=== PATIENT | male | born 1955 | race Caucasian/White ===

== ENCOUNTER 2020-05-01 09:46 | Inpatient (IN) | payer BC ==
[~2020-05-01] VITALS: Ht 188 cm; Wt 141.5 kg
[2020-05-01] MEDS ORDERED: SODIUM CHLORIDE 0.9% 1000ML 1,000 ML IV STA (09:58)
[2020-05-01] MEDS ORDERED: ONDANSETRON HCL INJ 2MG/ML 2ML 2 MG/ML VIAL IV STA (09:58)
[2020-05-01] MEDS ORDERED: MORPHINE SULFATE INJ 4 MG/ML INJ 1ML IV PRN ×2 (10:00→12:30)
--- NOTE | 2020-05-01 10:04 | Emergency Department Note ---
History of Present Illnes History of Present Illness Chief Complaint: Abdominal Complaints History of Present Illness This is a 65 year old male arrived to the ED with complaints of abdominal pain. Chief Complaint Comment pt came from home via POV, pt c/o nausea, vomiting and diarrhea x 3 days, pt states that he felt better after a day but has not been able to eat or drink anything because of the fear of vomiting, pt took Phenergan at 0800 this morning but states that he did not feel any relief, no tenderness noted to the abdomen, pt appears NAD during triage and initial contact Historian: Patient Onset (how long ago): day(s) Radiation: Reports non-radiation Severity: mild Duration (how long): day(s) Timing of current episode: constant Progression: worsening Chronicity: new Relieving factors: none Exacerbating factors: none Past Medical/Family History Physician Review I have reviewed the patient's past medical and family history. Any updates have been documented here. Past Medical History Recent Fever: Yes (patient states that he had a fever at home) Clinical Suspicion of Infectio: No New/Unexplained Change in Ment: No Past Medical History: Hypertension, Hyperlipedemia Past Surgical History: None Social History Smoking Cessation: Never Smoker Counseling Performed: No Alcohol Use: None Any Illegal Drug Use: No Other Any Pre-Existing Lines (PICC,: No Review of Systems Review of Systems Constitutional: Reports no symptoms EENTM: Reports no symptoms Cardiovascular: Reports no symptoms Respiratory: Reports no symptoms Gastrointestinal: Reports as per HPI, Reports abdominal pain, Reports nausea, Reports vomiting Genitourinary: Reports no symptoms Musculoskeletal: Reports no symptoms Integumentary: Reports no symptoms Neurological: Reports no symptoms Psychological: Reports no symptoms Endocrine: Reports no symptoms Hematological/Lymphatic: Reports no symptoms Physical Exam Related Data Allergies: Coded Allergies: No Known Allergies (Unverified , 05/01/20) Triage Vital Signs Vital Signs Date Time Temp Pulse Resp B/P (MAP) Pulse Ox O2 Delivery O2 Flow Rate FiO2 05/01/20 09:58 98.2 113 18 150/78 100 Room Air Vital signs reviewed: Yes Physical Exam CONSTITUTIONAL Constitutional: Present well-developed, Present well-nourished, Present obese HENT HENT: Present normocephalic, Present atraumatic, Present oropharynx clear/moist, Present nose normal HENT L/R: Present left ext ear normal, Present right ext ear normal EYES Eyes: Reports PERRL, Reports conjunctivae normal NECK Neck: Present ROM normal PULMONARY Pulmonary: Present effort normal, Present breath sounds normal CARDIOVASCULAR Cardiovascular: Present regular rhythm, Present heart sounds normal, Present capillary refill normal, Present normal rate GASTROINTESTINAL Abdominal: Present soft, Present bowel sounds normal, Present distension, Present tender GENITOURINARY Genitourinary: Present exam deferred SKIN Skin: Present warm, Present dry MUSCULOSKELETAL Musculoskeletal: Present ROM normal NEUROLOGICAL Neurological: Present alert, Present oriented x 3, Present no gross motor or sensory deficits PSYCHOLOGICAL Psychological: Present mood/affect normal, Present judgement normal Results Laboratory Lab results reviewed: Yes Laboratory comments Laboratory Tests Test 05/01/20 12:25 05/01/20 09:55 White Blood Count 16.32 x10e3/uL (4.8-10.8) Red Blood Count 4.86 x10e6/uL (4.3-5.7) Hemoglobin 14.7 g/dL (14.0-18.0) Hematocrit 43.0 % (38.2-49.6) Mean Corpuscular Volume 88.5 fL (81-99) Mean Corpuscular Hemoglobin 30.2 pg (28-32) Mean Corpuscular Hemoglobin Concent 34.2 g/dL (31-35) Red Cell Distribution Width 12.3 % (11.7-14.4) Platelet Count 175 x10e3/uL (140-360) Neutrophils (%) (Auto) 87.6 % (38.7-80.0) Lymphocytes (%) (Auto) 3.4 % (18.0-39.1) Monocytes (%) (Auto) 7.7 % (4.4-11.3) Eosinophils (%) (Auto) 0.2 % (0.0-6.0) Basophils (%) (Auto) 0.4 % (0.0-1.0) Neutrophils # (Auto) 14.3 (2.1-6.9) Lymphocytes # (Auto) 0.6 (1.0-3.2) Monocytes # (Auto) 1.3 (0.2-0.8) Eosinophils # (Auto) 0.0 (0.0-0.4) Basophils # (Auto) 0.1 (0.0-0.1) Absolute Immature Granulocyte (auto 0.12 x10e3/uL (0-0.1) Sodium Level 132 mmol/L (136-145) Potassium Level 4.1 mmol/L (3.5-5.1) Chloride Level 91 mmol/L (98-107) Carbon Dioxide Level 23 mmol/L (22-29) Anion Gap 22.1 mmol/L (8-16) Blood Urea Nitrogen 14 mg/dL (7-26) Creatinine 1.05 mg/dL (0.72-1.25) Estimat Glomerular Filtration Rate > 60 ML/MIN (60-) BUN/Creatinine Ratio 13 (6-25) Glucose Level 324 mg/dL (74-118) Calcium Level 9.7 mg/dL (8.4-10.2) Total Bilirubin 1.2 mg/dL (0.2-1.2) Aspartate Amino Transf (AST/SGOT) 24 IU/L (5-34) Alanine Aminotransferase (ALT/SGPT) 14 IU/L (0-55) Alkaline Phosphatase 134 IU/L (40-150) Creatine Kinase 46 IU/L (30-200) Creatine Kinase MB 0.40 ng/mL (0-5.0) Troponin I 0.002 ng/mL (0-0.300) Total Protein 7.2 g/dL (6.5-8.1) Albumin 3.6 g/dL (3.5-5.0) Globulin 3.6 g/dL (2.3-3.5) Albumin/Globulin Ratio 1.0 (0.8-2.0) Lipase 32 U/L (8-78) Imaging Imaging results reviewed: Yes Impressions IMPRESSION: Acute cholecystitis. Surgical consultation is suggested. Additional findings include prostatomegaly and atherosclerotic vascular disease. Signed by: Dr. Orville Zaragoza M.D. on 05/01/2020 12:17 PM Procedures 12 Lead ECG Interpretation ECG Interpretation : ECG: ECG 1 Histology Specialist: Interpreted by ED physician Prior ECG tracings: reviewed Rhythm: sinus tachycardia QRS axis: left ST segments normal: Yes Clinical Impression: normal ECG Assessment & Plan Medical Decision Making MDM 65-year-old male arrives to the ED with diffuse abdominal pain. CT findings concerning for acute cholecystitis. Patient with WBC count of about 16,000. And also Rocephin given and patient admitted. Spoke to Dr. Alok Reagan for general surgery evaluation and management. Assessment & Plan Final Impression: (1) Acute cholecystitis Depart Disposition: HOME, SELF-CARE Last Vital Signs Date Time Temp Pulse Resp B/P (MAP) Pulse Ox O2 Delivery O2 Flow Rate FiO2 05/01/20 09:58 98.2 113 18 150/78 100 Room Air JEREMIAH DIEZ DO May 01, 2020 10:04
[2020-05-01 10:15] LABS: BASOPHILS # (AUTO) 0.1 (0.0-0.1); BASOPHILS % 0.4 % (0.0-1.0); EOSINOPHILS % 0.2 % (0.0-6.0); HEMOGLOBIN 14.7 g/dL (14.0-18.0); LYMPHOCYTES # (AUTO) 0.6 (1.0-3.2); LYMPHOCYTES % 3.4 % (18.0-39.1); MEAN CORPUSCULAR HEMOGLOBIN 30.2 pg (28-32); MEAN CORPUSCULAR HGB CONC 34.2 g/dL (31-35); MEAN CORPUSCULAR VOLUME 88.5 fL (81-99); MONOCYTES # (AUTO) 1.3 (0.2-0.8); MONOCYTES % 7.7 % (4.4-11.3); NEUTROPHILS # (AUTO) 14.3 (2.1-6.9); NEUTROPHILS % 87.6 % (38.7-80.0); PLATELET COUNT 175 x10e3/uL (140-360); RED BLOOD COUNT 4.86 x10e6/uL (4.3-5.7); RED CELL DISTRIBUTION WIDTH 12.3 % (11.7-14.4)
[2020-05-01 10:42] LABS: ALANINE AMINOTRANSFERASE 14 IU/L (0-55); ALBUMIN 3.6 g/dL (3.5-5.0); ALKALINE PHOSPHATASE 134 IU/L (40-150); ANION GAP 22.1 mmol/L (8-16); BLOOD UREA NITROGEN 14 mg/dL (7-26); BUN/CREATININE RATIO 13 (6-25); CALCIUM 9.7 mg/dL (8.4-10.2); CARBON DIOXIDE 23 mmol/L (22-29); CHLORIDE 91 mmol/L (98-107); CREATINE KINASE 46 IU/L (30-200); CREATININE, SERUM 1.05 mg/dL (0.72-1.25); EST GLOMERULAR FILTRATION RATE > 60 ML/MIN (60-); GLUCOSE 324 mg/dL (74-118); POTASSIUM 4.1 mmol/L (3.5-5.1); SODIUM 132 mmol/L (136-145)
--- NOTE | 2020-05-01 11:21 | Diagnostic Imaging Report ---
Examination: Single AP view of the chest. COMPARISON: None. INDICATION: Abdominal pain DISCUSSION: The lungs are well-inflated. Linear airspace opacities in the lung bases compatible with subsegmental atelectasis. No airspace consolidation, pleural effusion, or pneumothorax. Mild enlargement of the cardiac silhouette without overt pulmonary edema. Tortuous thoracic aorta. Convexity along the right pericardiophrenic sulcus likely reflects prominent epicardial fat. No acute osseous abnormality. IMPRESSION: Subsegmental atelectasis in the lung bases. Mild enlargement of the cardiac silhouette without vascular decompensation. Signed by: Dr. Orville Zaragoza M.D. on 05/01/2020 11:18 AM
--- OUTSIDE RECORDS SUMMARY | 2020-05-01 11:51 | XMS REPORT | Continuity of Care Document ---
Author Author [facility] Organization [facility] Address [address] [place] [id number] Phone Unavailable Care Team Providers Care Eyelet Row Marker Name Role Phone Yassine DIEZ Attphyyassine Unavailable Problems This patient has no known problems. Allergies, Adverse Reactions, Alerts This patient has no known allergies or adverse reactions. Medications This patient has no known medications. Procedures This patient has no known procedures. Results Test Description Test Time Test Comments Results Result Comments Source CHEST SINGLE (PORTABLE) 2020-05-01 11:15:00 [place] [address] Patient Name: FRANCK LEÓN MR #: [id number] : 1955 Age/Sex: 65/M Req #: [id number] Adm Physician: Ordered by: JEREMIAH DIEZ DO Report #: [id number] Location: ER Room/Bed: Procedure: [id number] DX/CHEST SINGLE (PORTABLE) Exam Date: 05/01/20 Exam Time: 1040 REPORT STATUS: Signed Examination: Single AP view of the chest. COMPARISON: None. INDICATION: Abdominal pain DISCUSSION: The lungs are well-inflated. Linear airspace opacities in the lung bases compatible with subsegmental atelectasis. No airspace co nsolidation, pleural effusion, or pneumothorax. Mild enlargement of the cardiac silhouette without overt pulmonary edema. Tortuous thoracic aorta. Convexity along the right pericardiophrenic sulcus likely reflects prominent epicardial fat. No acute osseous abnormality. IMPRESSION: Subsegmental atelectasis in the lung bases. Mild enlargement of the cardiac silhouette without vascular decompensation. Signed by: Dr. Willian Orta M.D. on 05/01/2020 11:18 AM Dictated By: WILLIAN ORTA MD 111 Transcribed By: MILANA on 05/01/201117 COPY TO: JEREMIAH DIEZ DO
[2020-05-01] MEDS ORDERED: IOPAMIDOL 370 MG/ML 200 ML INFUS..BTL INJ ONE (12:17)
[2020-05-01] MEDS ORDERED: SODIUM CHLORIDE 0.9% 50ML 50 ML ONE (12:17)
--- NOTE | 2020-05-01 12:20 | Diagnostic Imaging Report ---
EXAMINATION: CT of the abdomen and pelvis with contrast. TECHNIQUE: Spiral CT images of the abdomen and pelvis were performed from the lung bases to the lesser trochanters after the intravenous administration of 100 cc of Isovue 370. Coronal and sagittal reformatted images were obtained. COMPARISON: Chest radiograph same day CLINICAL HISTORY:Abdominal pain, nausea, vomiting, diarrhea DISCUSSION: ABDOMEN/PELVIS: LOWER THORAX:Bandlike atelectasis in the lower lobes. HEPATOBILIARY: No focal hepatic lesions. No intra-or extrahepatic biliary ductal dilation. The gallbladder wall is thickened and hyperenhancing, with pericholecystic inflammatory fat stranding extending into the david hepatis region. No discrete radiodense calculus or common bile duct dilatation. SPLEEN: No splenomegaly or focal splenic lesion. PANCREAS: No focal mass or ductal dilatation. No peripancreatic inflammation. ADRENALS: No adrenal nodules. KIDNEYS/URETERS: No hydronephrosis, calculi, or solid or cystic mass lesions. PELVIC ORGANS/BLADDER: The prostate is enlarged, measuring 5.7 cm transversely with mass effect on the bladder base. The urinary bladder is otherwise unremarkable. PERITONEUM/RETROPERITONEUM: No ascites or pneumoperitoneum. LYMPH NODES: Prominent reactive lymph nodes in the david hepatis measure up to 1.2 cm short axis. No pelvic sidewall or retroperitoneal lymphadenopathy. VESSELS: Atherosclerotic calcification of the abdominal aorta, major branch vessels, and iliac arterial systems without aneurysmal dilatation. 3 left renal arteries and 2 right renal arteries. Portal vein, splenic vein, and central superior mesenteric vein are patent. GI TRACT: The large bowel shows no distention or wall thickening, though the descending and sigmoid colon are collapsed and poorly evaluated. The appendix is normal. The stomach is collapsed with prominent rugal folds. Small duodenal diverticula. No small bowel dilatation to suggest obstruction. BONES AND SOFT TISSUE: No osseous destructive lesions. Mild multilevel degenerative disc changes of the lower thoracic and lumbar spine. No focal soft tissue abnormalities. IMPRESSION: Acute cholecystitis. Surgical consultation is suggested. Additional findings include prostatomegaly and atherosclerotic vascular disease. Signed by: Dr. Orville Zaragoza M.D. on 05/01/2020 12:17 PM
[2020-05-01] MEDS ORDERED: CEFTRIAXONE SOD 1 GM/NS 50 ML 50 ML IV ONE (12:30)
[2020-05-01] MEDS ORDERED: ONDANSETRON HCL INJ 2MG/ML 2ML 2 MG/ML VIAL IV PRN (12:30)
--- OUTSIDE RECORDS SUMMARY | 2020-05-01 12:38 | XMS REPORT | Continuity of Care Document ---
Author Author [facility] t Organization [facility] Address [address] [place] [id number] Phone Unavailable Care Team Providers Care Slag Mixer Name Role Phone Maribel DIEZ Unavailable Problems This patient has no known problems. Allergies, Adverse Reactions, Alerts This patient has no known allergies or adverse reactions. Medications This patient has no known medications. Procedures This patient has no known procedures. Results Test Description Test Time Test Comments Results Result Comments Source CT ABDOMEN/PELVIS W 2020-05-01 12:08:00 [place] [address] Patient Name: FRANCK LEÓN MR #: [id number] : 1955 Age/Sex: 65/M Req #: [id number] Adm Physician: Ordered by: JEREMIAH DIEZ DO Report #: [id number] Location: ER Room/Bed: Procedure: [id number] CT/CT ABDOMEN/PELVIS W Exam Date: 05/01/20 Exam Time: 1135 REPORT STATUS: Signed EXAMINATION: CT of the abdomen and pelvis with contrast. TECHNIQUE: Spiral CT images of the abdomen and pelvis were performed from the lung bases to the lesser trochanters after the intravenous administration of 100 cc of Isovue 370. Coronal and sagittal reformatted images were obtained. COMPARISON: Chest radiograph same day CLINICAL HISTORY:Abdominal pain, nausea, vomiting, diarrhea DISCUSSION: ABDOMEN/PELVIS: LOWER THORAX:Bandlike atelectasis in the lower lobes. HEPATOBILIARY: No focal hepatic lesions. No intra-or extrahepatic biliary ductal dilation. The gallbladder wall is thickened and hyperenhancing, with pericholecystic inflammatory fat stranding extending into the david hepatis region. No discrete radiodense calculus or common bile duct dilatation. SPLEEN: No splenomegaly or focal splenic lesion. PANCREAS: No focal mass or ductal dilatation. No peripancreatic inflammation. ADRENALS: No adrenal nodules. KIDNEYS/URETERS: No hydronephrosis, calculi, or solid or cystic mass lesions. PELVIC ORGANS/BLADDER: The prostate is enlarged, measuring 5.7 cm transversely with mass effect on the bladder base. The urinary bladder is otherwise unremarkable. PERITONEUM/ RETROPERITONEUM: No ascites or pneumoperitoneum. LYMPH NODES: Prominent reactive lymph nodes in the david hepatis measure up to 1.2 cm short axis. No pelvic sidewall or retroperitoneal lymphadenopathy. VESSELS: Atherosclerotic calcification of the abdominal aorta, major branch vessels, and iliac arterial systems without aneurysmal dilatation. 3 left renal arteries and 2 right renal arteries. Portal vein, splenic vein, and central superior mesenteric vein are patent. GI TRACT: The large bowel shows no distention or wall thickening, though the descending and sigmoid colon are co llapsed and poorly evaluated. The appendix is normal. The stomach is collapsed with prominent rugal folds. Small duodenal diverticula. No small bowel dilatation to suggest obstruction. BONES AND SOFT TISSUE: No osseous destructive lesions. Mild multilevel degenerative disc changes of the lower thoracic and lumbar spine. No focal soft tissue abnormalities. IMPRESSION: Acute cholecystitis. Surgical consultation is suggested. Additional findings include prostatomegaly and atherosclerotic vascular disease. Signed by: Dr. Willian Orta M.D. on 05/01/2020 12:17 PM Dictated By: WILLIAN ORTA MD 1217 Transcribed By: MILANA on 05/01/20 1217 COPY TO: JEREMIAH DIEZ DO CHEST SINGLE (PORTABLE) 2020-05-01 11:15:00 [place] [address] Patient Name: FRANCK LEÓN MR #: [id number] : 1955 Age/Sex: 65/M Req #: [id number] Adm Physician: Ordered by: JEREMIAH DIEZ DO Report #: [id number] Location: ER Room/Bed: Procedure: [id number] DX/CHEST SINGLE (PORTABLE) Exam Date: 05/01/20 Exam [...] 11:18 AM Dictated By: WILLIAN ORTA MD 17 Transcribed By: MILANA on 05/01/201117 COPY TO: JEREMIAH DIEZ DO
[2020-05-01] MEDS ORDERED: GLYCOPYRROLATE INJ 0.2 MG/ML VIAL ONE (13:40)
[2020-05-01] MEDS ORDERED: KETOROLAC TROMETHAMINE 30 MG/ML VIAL ONE (13:40)
[2020-05-01] MEDS ORDERED: ONDANSETRON HCL INJ 2MG/ML 2ML 2 MG/ML VIAL ONE (13:40)
[2020-05-01] MEDS ORDERED: PHENYLEPHRINE HCL 1% 10 MG/ML VIAL ONE (13:40)
[2020-05-01] MEDS ORDERED: DEXAMETHASONE SOD PHOS INJ 4 MG/ML VIAL ONE (13:40)
[2020-05-01] MEDS ORDERED: ROCURONIUM BROMIDE 10 MG/ML 5ML VIAL IV ONE (13:40)
[2020-05-01] MEDS ORDERED: PROPOFOL IV EMULSION 10 MG/ML 20 ML VIAL ONE (13:40)
[2020-05-01] MEDS ORDERED: SEVOFLURANE INHAL SOLN 250 ML PEN BTL ONE (13:40)
[2020-05-01] MEDS ORDERED: LIDOCAINE HCL 2% LOCAL INJ 5 ML SDV VIAL INJ ONE (13:40)
[2020-05-01] MEDS ORDERED: NEOSTIGMINE 1 MG/ML 10ML VIAL ONE ×2 (13:40→17:28)
[2020-05-01] MEDS ORDERED: INSULIN REGULAR, HUMAN 100 UNIT/1 ML 3ML VIAL ONE (14:44)
[2020-05-01] MEDS ORDERED: BUPIVACAINE 0.25% 30ML SDV INJ ONE (14:55)
[2020-05-01] MEDS ORDERED: METRONIDAZOLE 500MG/NS 100ML 100 ML IV ONE (15:19)
[2020-05-01] MEDS ORDERED: ACETAMINOPHEN 1000 MG/100 ML 100 ML IV ONE (15:33)
[2020-05-01 17:00] VITALS: BP 103/64
[2020-05-01] MEDS: INSULIN REGULAR, HUMAN 100 UNIT/1 ML 3ML VIAL SQ SCH (18:00)
[2020-05-01] MEDS ORDERED: DEXTROSE 50% SYRINGE 50 ML IV PRN (18:00)
[2020-05-01] MEDS ORDERED: ACETAMINOPHEN 325 MG TAB PO PRN (18:15)
--- NOTE | 2020-05-01 18:41 | Operative Report ---
DATE OF PROCEDURE: 05/01/2020 SURGEON: Mandeep Reagan MD PREOPERATIVE DIAGNOSES: 1. Hydrops of the gallbladder with empyema of the gallbladder, gangrenous acute cholecystitis. 2. Obesity. 3. Diabetes. POSTOPERATIVE DIAGNOSES: 1. Hydrops of the gallbladder with empyema of the gallbladder, gangrenous acute cholecystitis. 2. Diabetes. 3. Obesity. PROCEDURES PERFORMED: 1. Laparoscopic cholecystectomy. 2. Drainage of hydrops of the gallbladder. ASSISTANTS: 1. Orlando Reagan M.D. 2. ALONDRA Devnie. ESTIMATED BLOOD LOSS: Less than 100 mL. DRAINS: One 10 mm flat [place] drain. COMPLICATIONS: None. INDICATIONS AND FINDINGS: The patient is a 65-year-old male admitted with right upper quadrant pain for about a week. The patient's stated that he had been having the pain, and she asked him to come to the hospital, but he refused. The patient then finally a week later after the onset of the pain, presented to the emergency room at [facility], where he was found to have acute cholecystitis both clinically, laboratory data and by CT scan, revealed severe inflammatory changes in the right upper quadrant with enhancement of the gallbladder consistent with cholecystitis. INTRAOPERATIVE FINDINGS: The patient was found to have on laparoscopy acute gangrenous cholecystitis with gangrenous changes of the gallbladder. The gallbladder was very thick walled with areas of inflammation and mucosal ischemia. Due to the thickening of the gallbladder, I could not tell if there were any stones or not within the lumen of the gallbladder. The cystic duct was small and we could not see well due to the severe inflammatory changes in the common duct; however, I felt that I was able to identify the common duct within that inflammation. We clipped the cystic duct well away from where the common bile duct was. DESCRIPTION OF PROCEDURE: With the patient lying on the operative table in the supine position after administration of general anesthesia, he was prepped and draped for laparoscopic cholecystectomy, we began the procedure by establishing the pneumoperitoneum in the umbilical site after stab wound was made in that location and saline drop test was performed and pneumoperitoneum was insufflated to 15 mm of pressure, and then we placed a 10/11 trocar in that location. We placed a 10 mm subxiphoid port and two lateral working ports in the right midclavicular line and right anterior axillary line. Due to the acuteness of the situation, we had to put a fifth trocar in the left upper quadrant using a 5 mm size. Upon entering the abdomen, laparoscopy revealed a very large gallbladder, which was palpable after the patient was put to sleep as a hard mass. The gallbladder was very difficult to grasp with the grasper at the beginning. We decompressed the gallbladder several times in order to grasp the gallbladder and be able to perform the procedure laparoscopically. We began the dissection by first the gallbladder, which was a phlegmonous mass, from where it was stuck to the omentum leaving an indentation in the omentum that was at least 10 cm long x 5 or longer. After we the gallbladder from the omentum and decompressed it, then we were able to retract the gallbladder and began the dissection high down the gallbladder away from the hepatic ligament, which was unrecognizable. We slowly and gradually mobilized the gallbladder until we came across a couple of structures, one which was to the left, which turned out to be the cystic duct and another structure of which was larger and was located to the right of the surgeon's angle of view, which turned out to be the inflamed cystic artery. After we identified those structures, we carefully continued the dissection until we were able to gain enough length of the cystic duct to clip it away from the hepatoduodenal ligament and away from what I felt that the common bile duct was. The cystic artery was also transected between titanium clips, and then we took the gallbladder down from the liver bed using a combination of hydrodissection traction, countertraction, and electrocautery until we were able to finally detach the gallbladder from the liver bed. We did not palpate any stones, but we did not see any stones in a couple of areas where we had entered the lumen of the gallbladder. After we did that, we placed the gallbladder in an endobag and removed through the umbilical port, which had to be enlarged due to the large size of the gallbladder. We under direct vision with the camera, closed the umbilical port with two #1 Vicryl stitches and then released the pneumoperitoneum and inspected the operative field. We copiously irrigated the right upper quadrant and right subhepatic space to watch out all the pus and debris. There was some fibrinous exudate on the omental area, where the gallbladder had been stuck. We removed as much of that as we could carefully avoiding the colon. After we did that and the instrument count was pronounced correct, then we tied the umbilical sutures and closed the wound using 3-0 Vicryl for that location as well as the subxiphoid port and the skin of all the ports was closed using leandro. We left a 10 mm flat [place] drain, which was brought out through the right anterior axillary trocar and placed a drain in the gallbladder bed fossa and hepatoduodenal ligament, connected to self suction and secured to the skin with 3-0 silk. Sterile dressing was applied. The patient tolerated the procedure well and taken to the recovery room in stable condition. The patient's was informed of intraoperative findings, she is aware that there is potential for complication here due to the acuteness of the situation, severe inflammatory changes, diabetes, and obesity. MD CRISTOPHER Li/TESS /[id number]
[2020-05-01 18:57] VITALS: BP 108/67
--- NOTE | 2020-05-01 19:00 | NUR ---
RCD FROM PACU BY BED PT IS ALERT AND ORIENTED VITALS CHECKED CHECKED PT ON O2 2L BY NC THE WOUND SITE DRESSING INTACT 4 SITES ,BED LOW AND LOCKED CALL LIGHT IN REACH ,BED SIDE REPORT GIVEN TO ONCOMING NURSE
[2020-05-01 20:00] VITALS: BP 108/67
[2020-05-01 20:53] VITALS: BP 108/67
[2020-05-01] MEDS: LEVOFLOXACIN 500MG/D5W 100ML 100 ML IV SCH (21:10)
[2020-05-01] MEDS: PANTOPRAZOLE 40 MG 10ML VIAL IV SCH (21:11)
[2020-05-01] MEDS: METRONIDAZOLE 500MG/NS 100ML 100 ML IV SCH (21:19)
[2020-05-01] MEDS: HYDROMORPHONE 1MG/1ML INJ IV PRN (21:29)
[2020-05-01] MEDS: SODIUM CHLORIDE 0.9% 1000ML 1,000 ML IV SCH (22:39)
[2020-05-02] VITALS (8 sets, daily range): BP systolic 112–141; BP diastolic 69–81
--- NOTE | 2020-05-02 | NUR ---
spoke with Donte LEYVA/Dr. Mathews regarding pt blood sugar 429. New order received to give patient 20 units of Humulin R. Insulin given to patient subq to left arm.
[2020-05-02] MEDS: INSULIN REGULAR, HUMAN 100 UNIT/1 ML 3ML VIAL SQ SCH ×5 (00:42→21:00)
[2020-05-02] MEDS: HYDROMORPHONE 1MG/1ML INJ IV PRN ×4 (03:00→23:41)
[2020-05-02] MEDS: METRONIDAZOLE 500MG/NS 100ML 100 ML IV SCH ×4 (03:01→21:03)
[2020-05-02] MEDS: SODIUM CHLORIDE 0.9% 1000ML 1,000 ML IV SCH ×3 (03:02→16:32)
[2020-05-02 05:45] LABS: BASOPHILS % 0.3 % (0.0-1.0); EOSINOPHILS % 0.1 % (0.0-6.0); HEMATOCRIT 37.7 % (38.2-49.6); HEMOGLOBIN 12.7 g/dL (14.0-18.0); LYMPHOCYTES # (AUTO) 0.6 (1.0-3.2); LYMPHOCYTES % 5.2 % (18.0-39.1); MEAN CORPUSCULAR HGB CONC 33.7 g/dL (31-35); MONOCYTES # (AUTO) 0.9 (0.2-0.8); MONOCYTES % 7.9 % (4.4-11.3); NEUTROPHILS # (AUTO) 10.1 (2.1-6.9); NEUTROPHILS % 85.6 % (38.7-80.0); PLATELET COUNT 150 x10e3/uL (140-360); RED CELL DISTRIBUTION WIDTH 12.5 % (11.7-14.4)
[2020-05-02 06:05] LABS: ANION GAP 16.3 mmol/L (8-16); CALCIUM 8.3 mg/dL (8.4-10.2); CREATININE, SERUM 1.29 mg/dL (0.72-1.25); POTASSIUM 4.3 mmol/L (3.5-5.1)
--- NOTE | 2020-05-02 07:10 | NUR ---
RCD PT AT BED PT IS ALERT AND ORIENTED PT RESTING ON BED IV PATENT BY SALINE FLUSH BED LOW AND LOCKED CALL LIGHT IN REACH
[2020-05-02] MEDS ORDERED: LISINOPRIL-HCT1 EACH PO (08:38)
[2020-05-02] MEDS ORDERED: CRESTOR10 MG PO (08:38)
[2020-05-02] MEDS ORDERED: METFORMIN HCL500 MG PO (08:38)
[2020-05-02] MEDS: HYDROCODONE/APAP 7.5MG-325MG 1 EA TAB PO PRN ×2 (09:36→15:55)
[2020-05-02] MEDS: CEFTRIAXONE SOD 2 GM/NS 100 ML 100 ML IV SCH (09:38)
[2020-05-02] MEDS ORDERED: METFORMIN HCL 500 MG TAB PO SCH (10:15)
[2020-05-02 11:34] LABS: BAND NEUTROPHILS % (MANUAL) 4 %; EOSINOPHILS % (MANUAL) 1 % (0-7); MONOCYTES % (MANUAL) 5 % (3.4-9.0)
[2020-05-02 11:35] LABS: LYMPHOCYTES % (MANUAL) 5 % (19-48); NEUTROPHILS % (MANUAL) 85 % (40-74); PLATELET ESTIMATE ADEQUATE; PLATELET MORPHOLOGY COMMENT NORMAL
[2020-05-02 11:36] LABS: RBC MORPHOLOGY COMMENT NORMAL; TOXIC GRANULATION F
--- NOTE | 2020-05-02 11:37 | NUR ---
DC YEE BY ORDER 100 ML URINE IN THE BAG
--- NOTE | 2020-05-02 15:56 | NUR ---
VOIDED AFTER YEE
[2020-05-02] MEDS ORDERED: INSULIN REGULAR, HUMAN 100 UNIT/1 ML 3ML VIAL SQ SCH (16:30)
[2020-05-02] MEDS: METFORMIN HCL 500 MG TAB PO SCH (17:00)
--- NOTE | 2020-05-02 17:00 | NUR ---
PT C/O PAIN ON THE LEFT LEG PAGED AND NOTIFIED SAIGE LEYVA SHE SAID SHE COMING TO SEE THE PT
[2020-05-02] MEDS: LEVOFLOXACIN 500MG/D5W 100ML 100 ML IV SCH (17:20)
[2020-05-02] MEDS: PANTOPRAZOLE 40 MG 10ML VIAL IV SCH (17:20)
[2020-05-02] MEDS: ONDANSETRON HCL INJ 2MG/ML 2ML 2 MG/ML VIAL IV PRN (18:31)
--- NOTE | 2020-05-02 18:52 | NUR ---
PT RESTING ON BED BED SIDE REPORT GIVEN TO ONCOMING NURSE
--- NOTE | 2020-05-02 19:54 | NUR ---
RECEIVED PT AOX3 ,RESPIRATIONS ARE EVEN AND UNLABORED LEFT AC 20G NS [id number] ABD HAS 4 TROCAR SITES WITH YULISA DRAINAGE PT DENIES PAIN AT THIS TIME .TELE #22 WITH SR ,CALL LIGHT WITH IN REACH ,CONTINUE TO MONIOR
[2020-05-02] MEDS: SIMVASTATIN 40 MG TAB PO SCH (21:03)
[2020-05-02] MEDS ORDERED: LORAZEPAM INJ 2 MG/ML VIAL IV ONE (23:30)
[2020-05-03] VITALS (8 sets, daily range): BP systolic 106–152; BP diastolic 57–85
[2020-05-03] MEDS: SODIUM CHLORIDE 0.9% 1000ML 1,000 ML IV SCH ×3 (01:45→16:39)
[2020-05-03] MEDS: METRONIDAZOLE 500MG/NS 100ML 100 ML IV SCH ×4 (03:13→21:22)
[2020-05-03] MEDS: HYDROMORPHONE 1MG/1ML INJ IV PRN ×3 (03:32→18:05)
--- NOTE | 2020-05-03 03:33 | NUR ---
PT C/O LEFT LEG PAIN AND NUMBNESS AND NOTIFIED SAIGE LEYVA ,GIVEN THE ORDER TO DO VENOUS DOPPLER STAT .VENOUS DOPPLER SHOWS NO DVT .
--- NOTE | 2020-05-03 06:40 | NUR ---
PT C/O PAIN AND GIVEN ORDERED PAIN MEDICATION,CALL LIGHT WITH IN REACH ,CONTINUE TO MONITOR ,BEDSIDE REPORT GIVEN TO THE ONCOMING NURSE
--- NOTE | 2020-05-03 07:10 | NUR ---
RCD PT AT BED PT IS ALERT AND ORIENTED PT RESTING ON BED IV PATENT BY SALINE FLUSH BED LOW AND LOCKED CALL LIGHT IN REACH
[2020-05-03] MEDS: INSULIN REGULAR, HUMAN 100 UNIT/1 ML 3ML VIAL SQ SCH ×4 (07:30→22:12)
[2020-05-03 07:44] LABS: ALANINE AMINOTRANSFERASE 18 IU/L (0-55); ALBUMIN 2.9 g/dL (3.5-5.0); ALKALINE PHOSPHATASE 111 IU/L (40-150); ANION GAP 15.8 mmol/L (8-16); BLOOD UREA NITROGEN 17 mg/dL (7-26); BUN/CREATININE RATIO 19 (6-25); CALCIUM 8.4 mg/dL (8.4-10.2); CARBON DIOXIDE 25 mmol/L (22-29); CHLORIDE 97 mmol/L (98-107); CREATININE, SERUM 0.91 mg/dL (0.72-1.25); EST GLOMERULAR FILTRATION RATE > 60 ML/MIN (60-); GLUCOSE 227 mg/dL (74-118); POTASSIUM 4.8 mmol/L (3.5-5.1); SODIUM 133 mmol/L (136-145)
[2020-05-03] MEDS: METFORMIN HCL 500 MG TAB PO SCH ×2 (08:00→16:39)
[2020-05-03] MEDS: CEFTRIAXONE SOD 2 GM/NS 100 ML 100 ML IV SCH (10:00)
[2020-05-03] MEDS: HYDROCODONE/APAP 7.5MG-325MG 1 EA TAB PO PRN (11:50)
[2020-05-03] MEDS: LEVOFLOXACIN 500MG/D5W 100ML 100 ML IV SCH (17:27)
[2020-05-03] MEDS: PANTOPRAZOLE 40 MG 10ML VIAL IV SCH (17:27)
[2020-05-03] MEDS: ONDANSETRON HCL INJ 2MG/ML 2ML 2 MG/ML VIAL IV PRN (18:05)
--- NOTE | 2020-05-03 18:41 | NUR ---
PT RESTING ON BED BED SIDE REPORT GIVEN TO ONCOMING NURSE
--- NOTE | 2020-05-03 19:53 | NUR ---
RECEIVED PT AOX3 SITTING ON THE CHAIR , LEFT AC 20G NS [id number] ABD HAS 4 TROCAR SITES WITH YULISA DRAINAGE PT DENIES PAIN AT THIS TIME .TELE #22 WITH SR ,CALL LIGHT WITH IN REACH ,CONTINUE TO MONIOR
[2020-05-03] MEDS: SIMVASTATIN 40 MG TAB PO SCH (21:22)
[2020-05-04] VITALS: BP 150/83
[2020-05-04] MEDS: HYDROMORPHONE 1MG/1ML INJ IV PRN ×2 (01:44→06:00)
[2020-05-04] MEDS: SODIUM CHLORIDE 0.9% 1000ML 1,000 ML IV SCH ×2 (01:45→09:21)
[2020-05-04] MEDS: METRONIDAZOLE 500MG/NS 100ML 100 ML IV SCH ×2 (03:00→09:21)
[2020-05-04 04:00] VITALS: BP 124/76
--- NOTE | 2020-05-04 05:26 | NUR ---
PT C/O PAIN AND GIVEN ORDERED PAIN MEDICATION .CALL LIGHT WITH IN REACH ,CONTINUE TO MONITOR
[2020-05-04 06:09] LABS: BASOPHILS # (AUTO) 0.1 (0.0-0.1); BASOPHILS % 0.6 % (0.0-1.0); EOSINOPHILS # (AUTO) 0.1 (0.0-0.4); EOSINOPHILS % 1.4 % (0.0-6.0); HEMATOCRIT 38.4 % (38.2-49.6); HEMOGLOBIN 12.5 g/dL (14.0-18.0); LYMPHOCYTES # (AUTO) 1.1 (1.0-3.2); LYMPHOCYTES % 10.8 % (18.0-39.1); MEAN CORPUSCULAR HEMOGLOBIN 29.8 pg (28-32); MEAN CORPUSCULAR HGB CONC 32.6 g/dL (31-35); MEAN CORPUSCULAR VOLUME 91.6 fL (81-99); MONOCYTES % 9.6 % (4.4-11.3); NEUTROPHILS # (AUTO) 7.4 (2.1-6.9); NEUTROPHILS % 75.2 % (38.7-80.0); PLATELET COUNT 225 x10e3/uL (140-360); RED BLOOD COUNT 4.19 x10e6/uL (4.3-5.7); RED CELL DISTRIBUTION WIDTH 12.7 % (11.7-14.4)
[2020-05-04 06:28] LABS: ALANINE AMINOTRANSFERASE 17 IU/L (0-55); ALBUMIN 2.8 g/dL (3.5-5.0); ALKALINE PHOSPHATASE 105 IU/L (40-150); ANION GAP 15.8 mmol/L (8-16); BLOOD UREA NITROGEN 10 mg/dL (7-26); BUN/CREATININE RATIO 13 (6-25); CALCIUM 7.7 mg/dL (8.4-10.2); CARBON DIOXIDE 24 mmol/L (22-29); CHLORIDE 96 mmol/L (98-107); CREATININE, SERUM 0.75 mg/dL (0.72-1.25); EST GLOMERULAR FILTRATION RATE > 60 ML/MIN (60-); GLUCOSE 203 mg/dL (74-118); POTASSIUM 3.8 mmol/L (3.5-5.1); SODIUM 132 mmol/L (136-145)
--- NOTE | 2020-05-04 07:12 | NUR ---
BEDSIDE REPORT GIVEN TO THE ONCOMING NURSE
[2020-05-04 07:49] VITALS: BP 142/85
[2020-05-04] MEDS: INSULIN REGULAR, HUMAN 100 UNIT/1 ML 3ML VIAL SQ SCH ×2 (08:22→12:23)
[2020-05-04 08:31] VITALS: BP 142/85
--- NOTE | 2020-05-04 08:55 | NUR ---
Pt. expressed no spiritual or emotional concerns at this time. Pt identifies as Jehovah'S Witness. Appliance Repair Technician provided hospitality and information on how to reach youth ministry director, if needed. No need to follow at this time. BARBRA HERNÁNDEZ Appliance Repair Technician Spiritual Care Department O: [phone]
[2020-05-04] MEDS: METFORMIN HCL 500 MG TAB PO SCH (09:21)
[2020-05-04] MEDS: CEFTRIAXONE SOD 2 GM/NS 100 ML 100 ML IV SCH (11:03)
--- NOTE | 2020-05-04 11:34 | NUR ---
SPOKE WITH GORDON DEL CID ON-CALL FOR DR. CHOPRA. INFORMED HIM DR. SINGH CLEARED PT FOR DISCHARGE.
[2020-05-04 11:40] VITALS: BP 147/87
[2020-05-04] MEDS ORDERED: ACETAMINOPHEN325 M1 PO (15:02)
[2020-05-04] MEDS ORDERED: METFORMIN HCL500 MG PO (15:02)
[2020-05-04] MEDS ORDERED: TYLENOL # 31 EA PO (15:04)
[2020-05-04 15:59] VITALS: BP 102/52
--- NOTE | 2020-05-04 18:19 | Discharge Summary ---
CONSULTING PHYSICIAN: Dr. Mandeep Reagan with Surgery. CHIEF COMPLAINT: Abdominal pain. HISTORY OF PRESENT ILLNESS: The patient is a 65-year-old male with complaints of abdominal pain, nausea, vomiting, and diarrhea for 3 days prior to admission. He had a CT of the abdomen, which showed acute cholecystitis. Surgery was consulted and the patient had laparoscopic cholecystectomy on 05/01/2020. PAST MEDICAL HISTORY: Hypertension, type 2 diabetes mellitus, hyperlipidemia. PAST SURGICAL HISTORY: Noncontributory. FAMILY HISTORY: Noncontributory. SOCIAL HISTORY: Noncontributory according to the history and physical done by Jacinto Aguilar NP. ALLERGIES: NO KNOWN ALLERGIES. ADMITTING DIAGNOSES: 1. Acute cholecystitis, status post laparoscopic cholecystectomy on 05/01/2020. 2. Hypertension. 3. Type 2 diabetes mellitus. DISCHARGE DIAGNOSES: 1. Acute cholecystitis, status post laparoscopic cholecystectomy on 05/01/2020. 2. Hypertension. 3. Type 2 diabetes mellitus. PHYSICAL EXAMINATION: VITAL SIGNS: Today on the day of discharge; temperature 98.4, heart rate 84, blood pressure 142/85, respirations 18, and oxygen saturation 96% on room air. GENERAL: Out of bed, sitting up in a recliner, in no acute distress. LUNGS: Clear to auscultation. Respiratory pattern even and unlabored. HEENT: EOMI. NECK: Supple. CARDIOVASCULAR: Regular rate and rhythm. No murmur. Normal saline infusing at 100 mL an hour into a peripheral IV. ABDOMEN: Bowel sounds positive. He has a dressing covering his abdominal incision. EXTREMITIES: No pitting edema. No clubbing, cyanosis, or marked swelling. NEUROLOGICAL: GCS 15. Nonfocal. The patient states his abdominal pain is very minimal 3/10 on a 0-10 pain scale. HOSPITAL COURSE: He has had 3 diarrheal stools today, very small amounts. Overall, he is tolerating his diet well, just now starting to eat regular foods. He is on a regular diet. He does not check his fingerstick blood glucose at home, but states he will be after discharge. Laboratory data today on the day of discharge; WBCs 9.87, hemoglobin 12.5, hematocrit 38.4, and platelets 225. Sodium 132, potassium 3.8, chloride 96, CO2 of 24, BUN 10, creatinine 0.75, estimated GFR greater than 60, glucose 203. Hemoglobin A1c 12.1%. Calcium 7.7, total bilirubin 0.5, AST 25, ALT 17, alkaline phosphatase 105, total protein 5.6, albumin 2.8. Coronavirus PCR was negative on 05/01. Telemetry from yesterday on 05/03 shows a heart rate of 97. The patient to follow up with his PCP, Dr. Rao Carrillo in 1 to 2 weeks, follow up with Dr. Reagan with Surgery on Monday. The patient has already been seen by Dr. Reagan and has been cleared from a surgical standpoint for discharge home. Dictated by Joseph Hobson NP Mark Mathews MD [facility] /[id number]
== END 2020-05-04 16:54 | disposition home or self-care (01) | DRG 418 ==
LOC: ER 10:05 → UNDOADMOB 12:27 → ERHOLD 12:27 → OR 14:07 → MED/SURG 17:29 → OBSVTOIN 17:36
PROVIDERS: ADMIT Internal Medicine; ATTEND Internal Medicine
PROC: 0F9430Z Drainage of Gallbladder with Drainage Device, Percutaneous Approach (ICD-10-PCS; 2020-05-01)
PROC: 0FT44ZZ Resection of Gallbladder, Percutaneous Endoscopic Approach (ICD-10-PCS; principal; 2020-05-01 13:00)
DX: K80.00 Calculus of gallbladder with acute cholecystitis without obstruction (principal); K82.1 Hydrops of gallbladder; K82.A1 Gangrene of gallbladder in cholecystitis; I10 Essential (primary) hypertension; E11.9 Type 2 diabetes mellitus without complications; Z11.59 Encounter for screening for other viral diseases
CPT/HCPCS: 36415; 71045; 74177; 80053; 82550; 82553; 82948; 83036; 83690; 84484; 85025; 88304; 93005; 93971; 99284; C1766; J0696; J1100; J1170; J1817; J1885; J1956; J2001; J2270; J2370; J2405; J2710; J7030; Q9967; U0002